=== PATIENT | female | born 1975 ===

== ENCOUNTER → 2023-10-24 | Outpatient (CLI) | payer OTHER ==
[~2023-10-24] MED LIST: CYCL10 PO; Calcium 500 MG1 EACH PO; DOXY100 PO; HYDR1TAB94 PO; IBUP400 PO; Multivitamin1 EAC1 PO; PSEU120ER PO; Robaxin500 MG PO; SULTRIDS PO
== END ==
LOC: LAB SHORT 12:07 → LAB 12:07
DX: L08.9 Local infection of the skin and subcutaneous tissue, unspecified (principal)
CPT/HCPCS: 87070; 87077; 87186; 87205